=== PATIENT | male | born 1965 | race Caucasian/White ===

== ENCOUNTER 2017-07-06 10:10 | Emergency (ER) | END 2017-07-06 11:50 | disposition left against medical advice (07) | LOC: UCCORT 10:10 | DX: R73.9 Hyperglycemia, unspecified (principal); Z53.21 Procedure and treatment not carried out due to patient leaving prior to being seen by health care provider ==

== ENCOUNTER 2018-04-14 17:54 | Emergency (ER) | payer MEDICARE, OTHER ==
[2018-04-14 19:00] VITALS: BP 131/72
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
== END 2018-04-14 20:20 | disposition home or self-care (01) ==
LOC: UCCORT 17:54
DX: B34.9 Viral infection, unspecified (principal); Z88.8 Allergy status to other drugs, medicaments and biological substances; E11.9 Type 2 diabetes mellitus without complications; Z79.84 Long term (current) use of oral hypoglycemic drugs; E03.9 Hypothyroidism, unspecified; E78.5 Hyperlipidemia, unspecified
CPT/HCPCS: 99211; G0463